=== PATIENT | male | born 1970 | race Two or more races ===

== ENCOUNTER 2020-02-24 06:48 | Emergency (ER) | payer OTHER ==
[~2020-02-24] VITALS: Ht 170.2 cm; Wt 81.8 kg
[~2020-02-24 06:48] MED LIST: INSLAN SQ; SITA25 PO
[2020-02-24] MEDS ORDERED: INSLAN SQ (06:53)
[2020-02-24] MEDS ORDERED: METF-960 PO (06:53)
[2020-02-24] MEDS ORDERED: AMOX TR/POT CLAV 875 MG/125 MG TABLET PO ONE (07:15)
[2020-02-24 07:31] VITALS: BP 128/72
== END 2020-02-24 07:40 | disposition home or self-care (01) ==
LOC: EMS 06:48
DX: K04.7 Periapical abscess without sinus (principal); E11.9 Type 2 diabetes mellitus without complications; I10 Essential (primary) hypertension; F17.210 Nicotine dependence, cigarettes, uncomplicated

== ENCOUNTER 2020-06-20 12:10 | Emergency (ER) | payer OTHER ==
[~2020-06-20] VITALS: Ht 170.2 cm; Wt 83.2 kg
[~2020-06-20 12:10] MED LIST changes: +METF-960 PO
[2020-06-20] MEDS ORDERED: IBUPROFEN 600 MG TABLET PO ONE (13:00)
[2020-06-20] MEDS ORDERED: HYDROCODONE/ACETAMINOPHEN 5-325 MG TABLET PO ONE (13:00)
[2020-06-20 14:34] VITALS: BP 128/70
== END 2020-06-20 14:41 | disposition home or self-care (01) ==
LOC: EMS 12:10
DX: S62.633A Displaced fracture of distal phalanx of left middle finger, initial encounter for closed fracture (principal); E11.9 Type 2 diabetes mellitus without complications; I10 Essential (primary) hypertension; F17.210 Nicotine dependence, cigarettes, uncomplicated; Z79.84 Long term (current) use of oral hypoglycemic drugs; W22.8XXA Striking against or struck by other objects, initial encounter; Y93.89 Activity, other specified; Y92.89 Other specified places as the place of occurrence of the external cause; Y99.0 Civilian activity done for income or pay

== ENCOUNTER 2020-08-20 12:11 | Emergency (ER) | payer OTHER ==
[~2020-08-20] VITALS: Ht 172.7 cm; Wt 72.7 kg
[2020-08-20] MEDS ORDERED: IBUPROFEN 800 MG TABLET PO ONE (13:45)
[2020-08-20 14:17] LABS: BASOPHILS % (AUTO) 0.4 % (0.0-2.0); EOSINOPHILS % (AUTO) 1.5 % (1.0-6.0); HEMATOCRIT 39.4 % (41-53); HEMOGLOBIN 13.1 g/dL (13.5-17.5); LYMPHOCYTES % (AUTO) 14.9 % (22.0-44.0); MEAN CORPUSCULAR HGB CONC 33.3 G/dL (31.0-37.0); MEAN CORPUSCULAR VOLUME 99 fL (80-100); MONOCYTES # (AUTO) 0.7 K/uL (0.1-1.0); MONOCYTES % (AUTO) 10.2 % (2.0-9.0); NEUTROPHILS # (AUTO) 4.8 K/uL (1.8-7.7); RED BLOOD CELL COUNT(AUTO) 3.98 MIL/uL (4.50-5.90); RED CELL DISTRIBUTION WIDTH 12.9 % (11.5-14.5)
[2020-08-20 14:33] LABS: ANION GAP 8 mmol/L (8-16); CALCIUM, TOTAL 9.1 mg/dL (8.8-10.5); CARBON DIOXIDE 28 mmol/L (22-29); CHLORIDE 103 mmol/L (98-107); CREATININE 0.77 mg/dL (0.60-1.30); GLOMERULAR FILTR. RATE CALC > 60 mL/min (>60); GLUCOSE,RANDOM 208 mg/dL (70-110); POTASSIUM 3.8 mmol/L (3.5-5.1); SODIUM SERUM 139 mmol/L (136-145); UREA NITROGEN, BLOOD 20 mg/dL (7-18)
[2020-08-20 14:38] LABS: ALANINE AMINOTRANSFERASE 42 U/L (12-78); ALBUMIN 3.7 g/dL (3.4-5.0); ALKALINE PHOSPHATASE 167 U/L (46-116); ASPARTATE AMINOTRANSFERASE 25 U/L (15-37); BILIRUBIN,TOTAL 0.7 mg/dL (0.1-1.0); TOTAL PROTEIN, SERUM 7.9 g/dL (6.4-8.2)
[2020-08-20] MEDS ORDERED: SODIUM CHLORIDE 0.9% 100 ML ONE (14:43)
[2020-08-20] MEDS ORDERED: IOVERSOL 350 MG/ML 100 ML VIAL ONE (14:43)
[2020-08-20 15:22] LABS: PLATELET COUNT (AUTO) 84 K/uL (150-450)
[2020-08-20] MEDS ORDERED: HYDROCODONE/ACETAMINOPHEN 5-325 MG TABLET PO ONE (15:45)
[2020-08-20 16:09] VITALS: BP 141/75
== END 2020-08-20 16:17 | disposition home or self-care (01) ==
LOC: EMS 12:17
DX: K04.7 Periapical abscess without sinus (principal); E11.9 Type 2 diabetes mellitus without complications; I10 Essential (primary) hypertension; F17.210 Nicotine dependence, cigarettes, uncomplicated; Z79.4 Long term (current) use of insulin; Z79.899 Other long term (current) drug therapy
CPT/HCPCS: 36415; 70487; 80053; 85025; 99285; J7050; Q9967

== ENCOUNTER 2020-10-08 15:59 | Emergency (ER) | payer OTHER ==
[~2020-10-08] VITALS: Ht 165.1 cm; Wt 75.0 kg
[2020-10-08] MEDS ORDERED: DULA0.75 SQ (16:10)
[2020-10-08] MEDS ORDERED: KETOROLAC TROMETHAMINE 30 MG/ML VIAL IVP ONE (17:00)
[2020-10-08] MEDS ORDERED: SODIUM CHLORIDE 0.9% 1,000 ML IV ONE (17:00)
[2020-10-08 17:20] LABS: BASOPHILS % (AUTO) 0.5 % (0.0-2.0); EOSINOPHILS % (AUTO) 1.3 % (1.0-6.0); HEMATOCRIT 37.8 % (41-53); HEMOGLOBIN 12.8 g/dL (13.5-17.5); LYMPHOCYTES # (AUTO) 1.5 K/uL (1.0-4.8); LYMPHOCYTES % (AUTO) 21.3 % (22.0-44.0); MEAN CORPUSCULAR HEMOGLOBIN 33.8 pg (26.0-34.0); MEAN CORPUSCULAR HGB CONC 33.9 G/dL (31.0-37.0); MEAN CORPUSCULAR VOLUME 100 fL (80-100); MONOCYTES # (AUTO) 0.7 K/uL (0.1-1.0); MONOCYTES % (AUTO) 9.6 % (2.0-9.0); NEUTROPHILS # (AUTO) 4.7 K/uL (1.8-7.7); NEUTROPHILS % (AUTO) 67.3 % (40.0-70.0); PLATELET COUNT (AUTO) 100 K/uL (150-450); RED CELL DISTRIBUTION WIDTH 13.7 % (11.5-14.5)
[2020-10-08 17:35] LABS: ANION GAP 12 mmol/L (8-16); CALCIUM, TOTAL 8.9 mg/dL (8.8-10.5); CARBON DIOXIDE 24 mmol/L (22-29); CHLORIDE 105 mmol/L (98-107); GLOMERULAR FILTR. RATE CALC > 60 mL/min (>60); GLUCOSE,RANDOM 256 mg/dL (70-110); POTASSIUM 4.1 mmol/L (3.5-5.1); SODIUM SERUM 141 mmol/L (136-145); UREA NITROGEN, BLOOD 17 mg/dL (7-18)
[2020-10-08 17:39] LABS: ALANINE AMINOTRANSFERASE 56 U/L (12-78); ALBUMIN 3.3 g/dL (3.4-5.0); ALKALINE PHOSPHATASE 131 U/L (46-116); ASPARTATE AMINOTRANSFERASE 33 U/L (15-37); BILIRUBIN,TOTAL 0.8 mg/dL (0.1-1.0); LIPASE 125 U/L (73-393); TOTAL PROTEIN, SERUM 6.6 g/dL (6.4-8.2)
[2020-10-08 17:50] VITALS: BP 138/73
[2020-10-08 17:56] LABS: APPEARANCE,URINE CLEAR (CLEAR); BILIRUBIN,URINE NEGATIVE (NEGATIVE); GLUCOSE, URINE (UA) >=1000 mg/dL (NEGATIVE); KETONES,URINE TRACE mg/dL (NEGATIVE); LEUKOCYTE ESTERASE ,URINE NEGATIVE (NEGATIVE); NITRATE,URINE NEGATIVE (NEGATIVE); OCCULT BLOOD,URINE NEGATIVE (NEGATIVE); PH,URINE 6.5 (5.0-8.0); PROTEIN,URINE NEGATIVE (NEGATIVE)
[2020-10-08 18:15] LABS: BACTERIA,URINE None Seen /HPF (None Seen); RBC,URINE None Seen /HPF (0-2); SQUAMOUS EPITHELIAL CELL,UR Rare /LPF (None Seen); WBC,URINE 0-2 /HPF (0-5)
== END 2020-10-08 18:48 | disposition home or self-care (01) ==
LOC: EMS 15:59
DX: K52.9 Noninfective gastroenteritis and colitis, unspecified (principal); E11.40 Type 2 diabetes mellitus with diabetic neuropathy, unspecified; I10 Essential (primary) hypertension; F17.210 Nicotine dependence, cigarettes, uncomplicated; Z79.4 Long term (current) use of insulin; Z79.84 Long term (current) use of oral hypoglycemic drugs
CPT/HCPCS: 36415; 74176; 80053; 81001; 82962; 83690; 85025; 96361; 96374; 99284; J1885; J7030

== ENCOUNTER 2021-03-13 16:15 | Emergency (ER) | payer OTHER ==
[~2021-03-13] VITALS: Ht 170.2 cm; Wt 81.8 kg
[~2021-03-13 16:15] MED LIST changes: +DULA0.75 SQ; -SITA25 PO
[2021-03-13 16:28] VITALS: BP 101/60
== END 2021-03-13 18:14 | disposition left against medical advice (07) ==
LOC: EMS 16:17
DX: S51.812A Laceration without foreign body of left forearm, initial encounter (principal); W45.8XXA Other foreign body or object entering through skin, initial encounter; Y93.89 Activity, other specified; Y92.89 Other specified places as the place of occurrence of the external cause; Y99.8 Other external cause status; Z53.21 Procedure and treatment not carried out due to patient leaving prior to being seen by health care provider

== ENCOUNTER 2021-03-13 18:58 | Emergency (ER) | payer OTHER ==
[~2021-03-13] VITALS: Ht 170.2 cm; Wt 77.3 kg
[2021-03-13] MEDS ORDERED: ACETAMINOPHEN 500 MG TABLET PO ONE (21:00)
[2021-03-13] MEDS ORDERED: PERTUSS(ACELL),DIPH,TET VAC/PF 0.5 ML SYRINGE IM. ONE (21:00)
[2021-03-13] MEDS ORDERED: BACITRACIN 0.9 GM PACKET OINTMENT TP ONE (21:00)
[2021-03-13] MEDS ORDERED: IBUPROFEN 600 MG TABLET PO ONE (21:00)
[2021-03-13] MEDS ORDERED: LIDOCAINE 1%/EPI 1:200,000/PF 10 ML VIAL SQ ONE (21:00)
[2021-03-13] MEDS ORDERED: DOXYCYCLINE HYCLATE 100 MG TABLET PO ONE (21:30)
[2021-03-13 22:08] VITALS: BP 118/73
== END 2021-03-13 22:09 | disposition home or self-care (01) ==
LOC: EMS 19:00
DX: S51.812A Laceration without foreign body of left forearm, initial encounter (principal); E11.9 Type 2 diabetes mellitus without complications; I10 Essential (primary) hypertension; F17.210 Nicotine dependence, cigarettes, uncomplicated; W45.8XXA Other foreign body or object entering through skin, initial encounter; Y93.89 Activity, other specified; Y92.89 Other specified places as the place of occurrence of the external cause; Y99.8 Other external cause status
CPT/HCPCS: 12002; 90471; 90715; 99284; J3490

== ENCOUNTER 2022-03-01 06:06 | Emergency (ER) | payer OTHER ==
[~2022-03-01] VITALS: Ht 170.2 cm; Wt 91.0 kg
[~2022-03-01 06:06] MED LIST changes: +METF-1211 PO; -METF-960 PO
[2022-03-01] MEDS ORDERED: IBUPROFEN 600 MG TABLET PO ONE (07:30)
[2022-03-01] MEDS ORDERED: ACETAMINOPHEN 500 MG TABLET PO ONE (07:30)
[2022-03-01 07:45] LABS: GLUCOMETER DEV NAME(LOC) ERT.5; GLUCOSE,POINT OF CARE 326 MG/DL (70-110)
[2022-03-01] MEDS ORDERED: IBUP-1554 PO (08:54)
[2022-03-01] MEDS ORDERED: CLOT15CR74 TP (08:54)
[2022-03-01] MEDS ORDERED: CEPH-558 PO (08:55)
[2022-03-01 09:23] VITALS: BP 128/75
== END 2022-03-01 09:53 | disposition home or self-care (01) ==
LOC: EMS 06:07
DX: L24.9 Irritant contact dermatitis, unspecified cause (principal); E11.65 Type 2 diabetes mellitus with hyperglycemia; F17.210 Nicotine dependence, cigarettes, uncomplicated; I10 Essential (primary) hypertension; E11.40 Type 2 diabetes mellitus with diabetic neuropathy, unspecified; Z98.890 Other specified postprocedural states
CPT/HCPCS: 82962; 99283